=== PATIENT | female | born 1965 | race Caucasian/White ===

== ENCOUNTER 2017-09-06 10:16 | Observation (INO) | payer BC ==
[2017-09-06 11:46] LABS: ABS Basophils 0.1 10^3/ul (0-0.2); ABS Eosinophils 0.1 10^3/ul (0-0.6); ABS Lymphocytes 1.3 10^3/ul (1.0-4.8); ABS Monocytes 0.8 10^3/ul (0-0.8); ABS Neutrophils 4.9 10^3/ul (1.5-7.7); ABS Nucleated RBC 0 10^3/ul; Eosinophil % 0.9 % (0-6); Hematocrit 44 % (35-47); Hemoglobin 14.5 g/dl (12.0-16.0); Lymphocyte % 17.8 % (25-47); Mean Corpuscular HGB Conc 33 g/dl (31-36); Mean Corpuscular Hemoglobin 31 pg (27-31); Mean Corpuscular Volume 92 fL (80-97); Mean Platelet Volume 8 um3 (7.4-10.4); Nucleated Red Blood Cells % 0; Platelet Count 224 10^3/ul (150-450); Red Blood Count 4.72 10^6/ul (4.0-5.4); Red Cell Distribution Width 14 % (10.5-15)
[2017-09-06 12:00] LABS: EGFR Non-African American 70.9 (>60)
--- NOTE | 2017-09-06 13:49 | ADMNOTE ---
Subjective Date of Service: 09/06/17 Interval History: ADMISSION HISTORY AND PHYSICAL EXAM: Allergies Allergy/AdvReac Type Severity Reaction Status Date / Time Meperidine [From Demerol HCl] Allergy Vomiting Verified 05/12/16 16:54 Home Medications Medication Instructions Recorded Confirmed Type Aspirin EC Low Dose* [Ecotrin EC 81 mg PO QPM 09/06/17 09/06/17 History Low Dose 81 MG*] Folic Acid TAB* [Folvite TAB*] 1 mg PO DAILY 09/06/17 09/06/17 History Levothyroxine TAB* [Synthroid TAB*] 50 mcg PO DAILY 09/06/17 09/06/17 History Methotrexate TAB* 10 mg PO .SAT 09/06/17 09/06/17 History celeCOXIB CAP* [CeleBREX CAP*] 200 mg PO DAILY PRN 09/06/17 09/06/17 History HPI: The patient was in her usual stat of health until the PM 09/05/17 when she noted Her left ear was red and swollen. She had shaking chills. There was no hx of trauma, although her cat sleeps with her next to her head. She saw DINING SERVICE WORKER Kel Hi who gave her 2 injections of ceftriaxone. She had a temp over 101 before the injections, none since. No more chills either. Some increase in noted area erythema L ear. Family History: Findings - unremarkable Social History: Findings - Works time clock repairer as expert medical writer. Lives with her who is her SDM. No alochol or tobacco use. Past Medical History: Findings - 2 children, tubal ligation. Psoriatic arthritis Review of Systems - Measurements Intake and Output: Intake and Output Last 24 Hours 09/04/17 09/05/17 09/06/17 09/07/17 06:59 06:59 06:59 06:59 Weight 250 lb - Review of Systems Constitutional Symptoms: Negative: Weight Gain, Weight Loss, Weakness, Fatigue, Fever, Night Sweats, Unexplained Falls, Other Dermatology: Positive: Rash HEENT: Positive: Other - L ear cellulitis Eyes: Positive: Normal Thyroid: Positive: Normal Pulmonary: Positive: Normal Cardiology: Positive: Normal Gastroenterology: Positive: Normal Genital - Urinary: Positive: Normal Musculoskeletal: Positive: Joint Pain Endocrinology: Positive: Normal Hematologic/Lymphatic: Negative: Anemia, Easy Brusing, Hx Leukemia, Hx Lymphoma, Use of Anticoagulant, Use of Antiplatelet Drugs, Other Neurology: Positive: Normal Psychiatry: Positive: Normal Allergic/Immunologic: Negative: Hx Anaphylaxis, Hx Angioedema, Hx Environmental, Hx Seasonal, Athsma, Hx HIV, Immunocompromise, Swollen Glands LymphNodes, Other Objective Vital Signs - 8 hr 09/06/17 10:17 Temperature 99.4 F Pulse Rate 104 Respiratory 18 Rate Blood Pressure 138/92 (mmHg) O2 Sat by Pulse 99 Oximetry Appearance: Alert, sitting up on ED stretcher. In good spirits. Looks comfortable. Eyes: No Scleral Icterus Neck: NL Appearance and Movements; NL JVP, No Thyroid Enlargement, Masses Respiratory: Symmetrical Chest Expansion and Respiratory Effort, Clear to Auscultation, Clear to Percussion Cardiovascular: NL Sounds; No Murmurs; No JVD, RRR, No Edema Extremities: No Edema, No Clubbing, Cyanosis Skin: No Nodules or Sclerosis, - - L ear swollen, uniformly red. Erythema extends short distance into canal but dital canal and TM look nl. Erythema extends 1/2 cm behind ear on lower half of ear, 4 cm anterior to ear Neurological: Alert and Oriented x 3, NL Sensation Result Diagrams: 09/06/17 11:32 09/06/17 11:32 Assess/Plan/Problems-Billing Assessment: - Patient Problems (1) Cellulitis of left ear Current Visit: Yes Status: Acute Code(s): H60.12 - CELLULITIS OF LEFT EXTERNAL EAR SNOMED Code(s): 12799107 Comment: She responded to initial dose of ceftriaxone, will continue the same. (2) Psoriatic arthritis Current Visit: Yes Status: Acute Code(s): L40.50 - ARTHROPATHIC PSORIASIS, UNSPECIFIED SNOMED Code(s): 060961008 Comment: Patient told to omit her MTX dose 09/07/17. Celebrex PRN. (3) Morbid obesity Current Visit: Yes Status: Acute Code(s): E66.01 - MORBID (SEVERE) OBESITY DUE TO EXCESS CALORIES SNOMED Code(s): 413970072 Comment: BMI 44.3. (4) Hypothyroid Current Visit: Yes Status: Acute Code(s): E03.9 - HYPOTHYROIDISM, UNSPECIFIED SNOMED Code(s): 50937900 Comment: TSH wnl 05/13/17, continue home dose levothryoxine.
[2017-09-06] MEDS ORDERED: celeCOXIB CAP* 200 MG PO PRN (14:05)
[2017-09-06] MEDS ORDERED: Enoxaparin(*) 40 MG/0.4 ML SYR SUBCUT SCH (15:00)
[2017-09-06] MEDS ORDERED: cefTRIAXone(*) 1 GM in D5W 50 ML BAG* 50 ML IVPB SCH (16:00)
[2017-09-06] MEDS ORDERED: Aspirin EC Low Dose* 81 MG TAB.EC PO SCH (18:00)
[2017-09-07] MEDS ORDERED: Levothyroxine TAB* 50 MCG TAB PO SCH (06:00)
[2017-09-07 07:31] VITALS: BP 129/82
[2017-09-07] MEDS ORDERED: Folic Acid TAB* 1 MG PO SCH (09:00)
--- NOTE | 2017-09-07 11:12 | DS ---
CC: Maliha Schulz NP * DISCHARGE SUMMARY: DATE OF ADMISSION: 09/06/17 DATE OF DISCHARGE: 09/07/17 PRIMARY CARE PROVIDER: Maliha Schulz NP PRINCIPAL DIAGNOSIS: Left ear cellulitis. SECONDARY DIAGNOSIS: Psoriatic arthritis. MEDICATIONS AT DISCHARGE: 1. Keflex 500 mg 3 times a day for 10 additional days. 2. Methotrexate 10 mg on Saturdays. 3. Synthroid 50 mcg daily. 4. Celebrex 200 mg daily as needed. 5. Folic acid 1 tab daily. PERTINENT LABORATORY DATA: White blood cell count 7.0, 69% neutrophils. No other abnormalities except for mildly elevated glucose of 128 on presentation, nonfasting. HISTORY OF PRESENT ILLNESS AND HOSPITAL COURSE: This is a 52-year-old female with past medical history of psoriatic arthritis on methotrexate had sudden onset erythema and swelling over the left ear while at work associated with fevers. She received ceftriaxone prior to presentation, resolution of fevers and improvement in her erythema. Ceftriaxone was continued on admission with further improvement of erythema. On the day of discharge, erythema remained outside of her ear and auricle, not involving auditory canal. Tympanic membrane is unable to be visualized secondary to copious cerumen. There is mild preauricular erythema, also improved since admission. She has no pain on exam, no discharge. Overall feels much better and has remained afebrile since admission. Of note, the patient did have small area of psoriasis in superior part of her ear, which she notes she had been scratching out prior to development of erythema and swelling, which is still noticeable with a small laceration present in the most superior aspect of her ear. Due to the rapid development and evolution of her erythema, I would be concerned for staph as a causative organism; however, her rapid improvement with ceftriaxone argues against this. For this reason, I am going to start her on Keflex for 10 additional days, finish 12 days of antibiotics. She has been encouraged to follow up with the primary care provider prior to her completion of antibiotics to extend if necessary. I spent a significant amount of time detailing. Reasons to return to the hospital including but not limited to recurrent or worsening symptoms, worsening erythema, fevers, chills, night sweats, nausea, vomiting, diarrhea, or generally feeling worse or malaise. She acknowledged understanding. At followup, please; 1. Please monitor left ear for continued resolution of erythema. 2. No other specific labs or vitals that need followup. TIME SPENT: Greater than 60 minutes was spent on discharging the patient; greater than half was spent [id number] with the patient. [id number]/[facility] #: [id number] PERICO
== END 2017-09-07 08:50 | disposition home or self-care (01) ==
LOC: ED 10:16 → MED 13:49
PROVIDERS: ADMIT Internal Medicine; ATTEND Internal Medicine
DX: H60.12 Cellulitis of left external ear (principal); L40.50 Arthropathic psoriasis, unspecified; Z79.82 Long term (current) use of aspirin; Z79.899 Other long term (current) drug therapy
CPT/HCPCS: 36415; 80053; 85025; 87040; 99282; A9270-GY; G0378; J0696; J1650

== ENCOUNTER 2019-10-06 09:02 | Emergency (ER) | payer BC ==
--- OUTSIDE RECORDS SUMMARY | 2019-10-06 09:14 | XMS REPORT | Continuity of Care Document ---
:1965 External Reference #:[id number] Author Name NICOLAS Lunsford (transmitted by agent of provider Jane Pedersen) Address [facility] [place] [address] Care Team Providers Name Role Phone Maliha Schulz NP - Women's [facility] Care Team Information Prop And Effects Designer Problems Active Problems Provider Date Cervical spondylosis without myelopathy Federico Moore M.D. Onset: 01/21/2017 Shoulder joint pain Federico Moore M.D. Onset: 01/21/2017 Taking medication Reji Ferguson M.D. Onset: 11/05/2014 Lumbosacral spondylosis without myelopathy Reji Ferguson M.D. Onset: 2012 Psoriasis with arthropathy Reji Ferguson M.D. Onset: 09/21/2013 Medications Lock Stitch Channeler (Current) Use Encounter Reji Ferguson M.D. Onset: Carpal tunnel syndrome Reji Ferguson M.D. Onset: 11/10/2012 Immunological Findings Nonspecified Other & Reji Ferguson M.D. Onset: 2012 Unspecified Psoriasis Reji Ferguson M.D. Onset: 11/10/2012 Multiple joint pain Reji Ferguson M.D. Onset: 11/10/2012 Social History Type Date Description Comments Sex Unknown ETOH Use Denies alcohol use Tobacco Use Start: Unknown Patient has never smoked Recreational Drug Use Denies Drug Use Smoking Status Reviewed: 02/17/19 Patient has never smoked Allergies, Adverse Reactions, Alerts Active Allergies Reaction Severity Comments Date Demerol 11/10/2012 Medications Active Medications SIG Qnty Indications Ordering Provider Date Celebrex 3x po Q week 30caps Reji Ferguson 09/21/2013 200mg Capsules M.D. Aspir-81 1 po qd Other Ordering 03/20/2013 81mg Tablets Provider Folic Acid Take One Tablet 30tabs Z79.899 Estella Lezamak, 03/20/2013 1mg Tablets By Mouth Every ROLL SCALE MAN Day Methotrexate Sodium take four tablet 16tabs L40.59 Genooficarlos Saha, 2012 by mouth every ROLL SCALE MAN 2.5mg Tablets saturday as directed L40.9 Z79.899 Levothyroxine Sodium 1 by mouth every day Unknown 50mcg Tablets Clobetasol Propionate Unknown 0.05% Solution Immunizations Description No Information Available Vital Signs Date Vital Result Comment 08/25/2019 9:03am Heart Rate 84 /min BP Systolic Sitting 150 mmHg BP Diastolic Sitting 100 mmHg 02/17/2019 8:22am Height 63 inches 5'3" Weight 257.50 lb Heart Rate 83 /min BP Systolic Sitting 122 mmHg BP Diastolic Sitting 84 mmHg O2 % BldC Oximetry 98 % BMI (Body Mass Index) 45.6 kg/m2 Results Test Acquired Date Facility Test Result H/L Range Note Comp Metabolic 07/27/2019 [facility] Sodium 140 mmol/L Normal 135-145 Panel [address] [place] [address] [phone] Potassium 3.9 mmol/L Normal 3.5-5.0 Chloride 104 mmol/L Normal 101-111 Co2 Carbon Dioxide 31 mmol/L Normal 22-32 Anion Gap 5 mmol/L Normal 2-11 Glucose 97 mg/dL Normal 70-100 Blood Urea Nitrogen 20 mg/dL Normal 6-24 Creatinine 0.76 mg/dL Normal 0.51-0.95 BUN/Creatinine Ratio 26.3 High 8-20 Calcium 9.8 mg/dL Normal 8.6-10.3 Total Protein 7.2 g/dL Normal 6.4-8.9 Albumin 4.2 g/dL Normal 3.2-5.2 Globulin 3.0 g/dL Normal 2-4 Albumin/Globulin Ratio 1.4 Normal 1-3 Total Bilirubin 0.40 mg/dL Normal 0.2-1.0 Alkaline Phosphatase 68 U/L Normal 34-104 Alt 23 U/L Normal 7-52 Ast 26 U/L Normal 13-39 Egfr Non- 79.0 >60 Egfr 95.6 >60 1 Laboratory test 07/27/2019 [facility] C Reactive 11.80 High < 8.01 [address] Protein mg/[place] [address] [phone] CBC Auto Diff 07/27/2019 [facility] White Blood 5.7 Normal 3.5 -10.[address] Count 10^3/[place] [address] [phone] Red Blood Count 4.38 10^6/uL Normal 3.70-4.87 Hemoglobin 13.7 g/dL Normal 12.0-16.0 Hematocrit 40 % Normal 35-47 Mean Corpuscular Volume 90 fL Normal 80-97 Mean Corpuscular Hemoglobin 31 pg Normal 27-31 Mean Corpuscular HGB Conc 35 g/dL Normal 31-36 Red Cell Distribution Width 14 % Normal 10-15 Platelet Count 316 10^3/uL Normal 150-450 Mean Platelet Volume 8.2 fL Normal 7.4-10.4 Abs Neutrophils 3.0 10^3/uL Normal 1.5-7.7 Abs Lymphocytes 2.1 10^3/uL Normal 1.0-4.8 Abs Monocytes 0.4 10^3/uL Normal 0-0.8 Abs Eosinophils 0.1 10^3/uL Normal 0-0.6 Abs Basophils 0.1 10^3/uL Normal 0-0.2 Abs Nucleated RBC 0.0 10^3/uL Granulocyte % 53.0 % Lymphocyte % 36.7 % Monocyte % 7.3 % Eosinophil % 2.1 % Basophil % 0.9 % Nucleated Red Blood Cells % 0.1 Laboratory test 07/27/2019 [facility] Erythrocyte Sed 27 mm/Hr Normal 0-29 [address] [place] [address] [phone] 1 Because ethnic data is not always readily available, this report includes an eGFR for both -Americans and non- Americans. The National Kidney Disease Education Program (NKDEP) does not endorse the use of the MDRD equation for patients that are not between the ages of 18 and 70, are , have extremes of body size, muscle mass, or nutritional status, or are non- or non-. According to the National Kidney Foundation, irrespective of diagnosis, the stage of the disease is based on the level of kidney function: Stage Description GFR(mL/min/1.73 m(2)) 1 Kidney damage with normal or decreased GFR 90 2 Kidney damage with mild decrease in GFR 60-89 3 Moderate decrease in GFR 30-59 4 Severe decrease in GFR 15-29 5 Kidney failure <15 (or dialysis) 2 COPY TO MALIHA SCHULZ NP AND ESTELLA SAHA NP [id number] COPY TO MALIHA SCHULZ NP AND ESTELLA SAHA NP Procedures Date Code Description Status 03/31/2014 51799243 Mammogram Completed Medical Devices Description No Information Available Encounters Description No Information Available Assessments Date Code Description Provider 08/25/2019 L40.59 Other psoriatic arthropathy NICOLAS Lunsford 08/25/2019 L40.9 Psoriasis, unspecified NICOLAS Lunsford 08/25/2019 Z79.899 Other custodial (current) drug therapy NICOLAS Lunsford 08/25/2019 M85.9 Disorder of bone density and structure, NICOLAS Lunsford unspecified 08/25/2019 R03.0 Elevated blood-pressure reading, without NICOLAS Lunsford diagnosis of hypertension Plan of Treatment 08/25/2019 - JESSCIA LunsfordPL40.59 Other psoriatic arthropathyComments:Your arthritis seems to be clinically and symptomatically well controlled at this time.Your inflammatory markers are within normal range.Your latest laboratory tests indicate no detectable impairment of kidney and liver functions.Please, continue with the present dose of methotrexate but call me if you decide to increase the dose to 6 tab/weekContinue with folic acid.Continue with regular blood testsevery 3 month Please call the office if you develop any sign or symptoms of infection, increased skin or articular involvement or acute change in your health.Follow up:6 month labs every 3 month Needs info in the utjavlL83.9 Psoriasis, unspecifiedComments:Please call if you decried to increase the MTX to 6 tabs/week.Z79.899 Other custodial (current) drug [id number] Disorder of bone density and structure, unspecifiedComments:You should be getting at least 1000 mg -1200 mg of calcium and 1000 IU of Vitamin D on a daily basisin your diet and/or with supplementation. Calcium citrate is the most bioavailable preparation; dairy and greens leaf vegetables are an excellent source. It is also very important to be doing weight bearing exercises regularly.R03.0 Elevated blood-pressure reading, without diagnosis of hypertensionComments:Please check your BP and heart rate daily and keep a log of measurement. Please follow up with Edith Paris if BP runs consistently higher than 140/90. Functional Status Description No Information Available Mental Status Description No Information Available Referrals Description No Information Available
[2019-10-06 09:32] LABS: ABS Basophils 0.1 10^3/ul (0-0.2); ABS Eosinophils 0.1 10^3/ul (0-0.6); ABS Lymphocytes 1.6 10^3/ul (1.0-4.8); ABS Monocytes 0.5 10^3/ul (0-0.8); ABS Neutrophils 6.8 10^3/ul (1.5-7.7); Eosinophil % 0.9 %; Hematocrit 42 % (35-47); Hemoglobin 14.6 g/dL (12.0-16.0); Lymphocyte % 18.1 %; Mean Corpuscular HGB Conc 35 g/dL (31-36); Mean Corpuscular Hemoglobin 31 pg (27-31); Mean Corpuscular Volume 90 fL (80-97); Mean Platelet Volume 7.9 fL (7.4-10.4); Platelet Count 306 10^3/uL (150-450); Red Blood Count 4.68 10^6 /uL (3.70-4.87); Red Cell Distribution Width 13 % (10-15); White Blood Count 9.1 10^3/uL (3.5-10.8)
[2019-10-06 09:45] LABS: Albumin 4.5 g/dL (3.2-5.2); Calcium 9.7 mg/dL (8.6-10.3); Potassium 4.3 mmol/L (3.5-5.0); Total Bilirubin 0.5 mg/dL (0.2-1.0)
[2019-10-06 09:51] LABS: Albumin/Globulin Ratio 1.4 (1-3); BUN/Creatinine Ratio 23.9 (8-20); EGFR African American 80.7 (>60); EGFR Non-African American 66.7 (>60); Globulin 3.3 g/dL (2-4); Total Protein 7.8 g/dL (6.4-8.9)
[2019-10-06] MEDS ORDERED: NS 0.9% 1000 ML** 1,000 ML IV ONE ×2 (10:12→12:24)
[2019-10-06] MEDS ORDERED: Ondansetron INJ* 2 MG/ML VIAL IV ONE (10:12)
[2019-10-06] MEDS ORDERED: Ketorolac INJ* 30 MG/ML 1 ML VIAL IV ONE (10:12)
--- NOTE | 2019-10-06 10:17 | ED ---
GI/ HPI - HPI Summary HPI Summary: This pt is a 4 Y/O F presenting to [facility] with a CC of R flank pain that has radiated to her genital region and is rated a 10/10 in severity and began 2019 at 0905. She states that she has been having dysuria and has had chills without a fever since the onset. She also states that she has been having hematuria since late last night. She denies any CP, vomiting, L sided flank pain , headaches, and sore throat. She states that she has no alleviating factors but urinating increases her pain. She has no pertinent PMHx and states that her mother has a HX of kidney stones. - History of Current Complaint Chief Complaint: EDFlankPain Time Seen by Provider: 10/06/19 09:11 Stated Complaint: SEVERE BACK AND ABDOMINAL PAIN PER PT Hx Obtained From: Patient Onset/Duration: Started Days Ago, Still Present Timing: Constant Severity: Severe Current Severity: Severe Pain Intensity: 10 Location of Pain: Flank - R Pain Radiates to: Inguinal Associated Signs and Symptoms: Positive: Negative - Sore throat, SOB, Nausea, Hematuria, Dysuria, Flank Pain - + R sided, - L sided, Chills, Abdominal Pain - inguinal. Negative: Vomiting, Fever Aggravating Factor(s): Urination Alleviating Factor(s): Nothing - Allergy/Home Medications Allergies/Adverse Reactions: Allergies Allergy/AdvReac Type Severity Reaction Status Date / Time meperidine [From Demerol] Allergy Vomiting Verified 11/13/18 14:05 PMH/Surg Hx/FS Hx/Imm Hx Previously Healthy: Yes Endocrine/Hematology History: Denies: Hx Diabetes Cardiovascular History: Denies: Hx Congestive Heart Failure, Hx Hypertension Musculoskeletal History: Reports: Hx Rheumatoid Arthritis - CHECKING, Other Musculoskeletal History - Hx psoriatic arthritis Sensory History: Denies: Hx Contacts or Glasses, Hx Legally Blind, Hx Hearing Aid Opthamlomology History: Denies: Hx Contacts or Glasses, Hx Legally Blind - Cancer History Hx Chemotherapy: No Hx Radiation Therapy: No - Surgical History Surgical History: Yes Surgery Procedure, Year, and Place: tubal ligation - Immunization History Immunizations Up to Date: Yes Infectious Disease History: No Infectious Disease History: Denies: Traveled Outside the [place] in Last 30 Days - Family History Known Family History: Positive: Other - Kidney stones: maternal - Social History Occupation: Employed Full-time Lives: With Family Alcohol Use: None Hx Substance Use: No Substance Use Type: Reports: None Hx Tobacco Use: No Smoking Status (MU): Never Smoked Tobacco Household Exposure: No Review of Systems Positive: Chills. Negative: Fever Negative: Sore Throat Negative: Chest Pain Positive: Abdominal Pain - inguinal , Nausea. Negative: Vomiting Positive: dysuria, flank pain - + R sided, - L sided, hematuria Negative: Headache All Other Systems Reviewed And Are Negative: Yes Physical Exam - Summary Physical Exam Summary: Constitutional: Well-developed, Well-nourished, Alert. Mildly uncomfortable Skin: Warm, Dry HENT: Normocephalic; Atraumatic Eyes: Conjunctiva normal Neck: Musculoskeletal ROM normal neck. (-) JVD, (-) Stridor, (-) Nuchal rigidity Cardio: Rhythm regular, rate normal, Heart sounds normal; Intact distal pulses; Radial pulses are 2+ and symmetric. (-) Murmur Pulmonary/Chest wall: Effort normal. (-) Respiratory distress, (-) Wheezes, (-) Rales Abd: Soft, R flank pain, epigastric tenderness (-) Distension, (-) Guarding, (- ) Rebound Musculoskeletal: (-) Edema Lymph: (-) Cervical adenopathy Neuro: Alert, Oriented x3 Psych: Mood and affect Normal Triage Information Reviewed: Yes Vital Signs On Initial Exam: Initial Vitals Temp Pulse Resp BP Pulse Ox 98.3 F 83 18 157/95 99 10/06/19 09:02 10/06/19 09:02 10/06/19 09:02 10/06/19 09:02 10/06/19 09:02 Vital Signs Reviewed: Yes Procedures - Sedation Patient Received Moderate/Deep Sedation with Procedure: No Diagnostics - Vital Signs Vital Signs Temp Pulse Resp BP Pulse Ox 10/06/19 09:02 98.3 F 83 18 157/95 99 - Laboratory Lab Results: Lab Results 10/06/19 10/06/19 Range/Units 09:23 09:23 WBC 9.1 (3.5-10.8) 10^3/uL RBC 4.68 (3.70-4.87) 10^6 /uL Hgb 14.6 (12.0-16.0) g/dL Hct 42 (35-47) % MCV 90 (80-97) fL MCH 31 (27-31) pg MCHC 35 (31-36) g/dL RDW 13 (10-15) % Plt Count 306 (150-450) 10^3/uL MPV 7.9 (7.4-10.4) fL Neut % (Auto) 75.1 % Lymph % (Auto) 18.1 % Bulloch % (Auto) 5.2 % Eos % (Auto) 0.9 % Baso % (Auto) 0.7 % Absolute Neuts (auto) 6.8 (1.5-7.7) 10^3/ul Absolute Lymphs (auto) 1.6 (1.0-4.8) 10^3/ul Absolute Monos (auto) 0.5 (0-0.8) 10^3/ul Absolute Eos (auto) 0.1 (0-0.6) 10^3/ul Absolute Basos (auto) 0.1 (0-0.2) 10^3/ul Absolute Nucleated RBC 0.0 10^3/ul Nucleated RBC % 0.0 Sodium 137 (135-145) mmol/L Potassium 4.3 (3.5-5.0) mmol/L Chloride 103 (101-111) mmol/L Carbon Dioxide 27 (22-32) mmol/L Anion Gap 7 (2-11) mmol/L BUN 21 (6-24) mg/dL Creatinine 0.88 (0.51-0.95) mg/dL Est GFR ( Amer) 80.7 (>60) Est GFR (Non-Af Amer) 66.7 (>60) BUN/Creatinine Ratio 23.9 H (8-20) Glucose 140 H (70-100) mg/dL Calcium 9.7 (8.6-10.3) mg/dL Total Bilirubin 0.50 (0.2-1.0) mg/dL AST 20 (13-39) U/L ALT 18 (7-52) U/L Alkaline Phosphatase 76 (34-104) U/L Total Protein 7.8 (6.4-8.9) g/dL Albumin 4.5 (3.2-5.2) g/dL Globulin 3.3 (2-4) g/dL Albumin/Globulin Ratio 1.4 (1-3) Result Diagrams: 10/06/19 09:23 10/06/19 09:23 Lab Statement: Any lab studies that have been ordered have been reviewed, and results considered in the medical decision making process. - CT CT A/P CT Interpretation Completed By: Radiologist Summary of CT Findings: Right hydronephrosis with calculi in the right ureter at the proximal ureter at the level of L3 level measuring 0.4 cm.. Additional calculi in the right ureterovesicular junction or in the bladder measuring 0.3 cm is noted with mild to moderate right hydroureter. ED physician has reviewed this report. Re-Evaluation - Re-Evaluation First Eval Re-Evaluation Time: 12:00 Change: Improved Comment: Pt states that she is feeling better and expressed a desire to be discharged home if she continues to improve and if she can sustain PO. Second Eval Re-Evaluation Time: 14:05 Change: Improved Comment: Pt passed her stone. Will be discharged home following Urology consult. GIGU Course/Dx - Course Course Of Treatment: 54 y/o F p/w R flank and RLQ pain. - VSS, mild distress 2/ 2 pain. Given toradol, IVF. Plan for CT a/p concern for renal stone. CT shows two R sided renal calculi. One 0.4 cm at the UPJ w hydronephrosis. Given 2g ceftriaxone for UA w 2+ WBC, d/w urology who states patients urine not infected so not given further abx. - Patient given IVF, pain control. Able to pass stone. Will go home w pain control and can follow up w urology. Stone analysis ordered - Diagnoses Provider Diagnoses: Kidney stone, Flank pain - Physician Notifications Discussed Care Of Patient With: Olman Nguyen Time Discussed With Above Provider: 12:25 Instructed by Provider To: Other - Dr. Nguyen, bonding equipment operator, recommends pain control and reassesment in a couple hours after the pt as received more fluids. The pt is scheduled for surgery at 1700 today if her pain increases and she continues to have intesnifying symptoms. at 14:00 he states patient can be discharged to home and follow up in office Discharge ED - Sign-Out/Discharge Documenting (check all that apply): Patient Departure - discharge - Discharge Plan Condition: Stable Disposition: HOME Prescriptions: oxyCODONE/Acetamin 5/325 MG* [Percocet 5/325 TAB*] 1 tab PO Q6H PRN 3 Days #12 tab MDD 4 PRN Reason: Pain Patient Education Materials: Kidney Stones (ED), Flank Pain (ED) Referrals: Maliha Schulz NP [Primary Care Provider] - 2 Days Additional Instructions: You were seen in the emergency department for flank pain. Your CT scan showed 2 stones in your kidney, you were able to pass one here. Please keep hydrated. Please use a strainer when using the restroom. Please follow up with urology. Please follow up with your primary care doctor in next 2-3 days and return to emergency department for worsening pain, fevers, or concerning symptoms. It was a pleasure taking care of you today. - Billing Disposition and Condition Condition: STABLE Disposition: Home - Attestation Statements Document Initiated by Makayla: Yes Documenting Scribe: Mahendra Brown Provider For Whom Makayla is Documenting (Include Credential): Kyia Hyatt MD Scribe Attestation: IMahendra, scribed for Kiya Hyatt MD on 10/06/19 at 1451. Scribe Documentation Reviewed: Yes Provider Attestation: The documentation as recorded by the Mahendra galarza accurately reflects the service I personally performed and the decisions made by Kiya funez MD Status of Scribe Document: Viewed
[2019-10-06] MEDS ORDERED: Iohexol 300* (CONTRAST) 10 ML SDV IV ONE (10:35)
[2019-10-06 11:12] LABS: Urine Appearance Turbid; Urine Bilirubin Negative (Negative); Urine Blood 3+ (Negative); Urine Color Amber; Urine Glucose Negative (Negative); Urine Ketones Negative (Negative); Urine Nitrite Negative (Negative); Urine Protein 1+(30 mg/dL) (Negative); Urine Specific Gravity 1.021 (1.010-1.030); Urine Urobilinogen Negative (Negative)
[2019-10-06 11:15] LABS: Urine Bacteria Absent (Absent); Urine Red Blood Cell 3+(>10/hpf) (Absent); Urine Squamous Epithelial Cell Present (Absent); Urine White Blood Cell 2+(11-20/hpf) (Absent)
[2019-10-06] MEDS ORDERED: cefTRIAXone(*) 2 GM in NS 0.9% 100 ML* 100 ML IVPB ONE (11:19)
[2019-10-06] MEDS ORDERED: Morphine 4 MG/ML VIAL (1 ml) 4 MG/ML VIAL IV ONE ×2 (11:28→11:38)
[2019-10-06] MEDS ORDERED: oxyCODONE/Acetamin 5/325 MG* TAB PO ONE (12:33)
[2019-10-06 13:54] VITALS: BP 127/68
[2019-10-06] MEDS ORDERED: Buffered Lidocaine 1% SYRIN* 1 ML/SYRINGE INTRADERM ONE (13:55)
[2019-10-06] MEDS ORDERED: Famotidine IV* 10 MG/ML 2 ML (20 mg) IV ONE (13:55)
[2019-10-06] MEDS ORDERED: Lactated Ringers 1000 ML Bag* 1,000 ML IV SCH (14:00)
--- NOTE | 2019-10-06 16:30 | CONS ---
CONSULTATION REPORT: DATE OF CONSULT: 10/06/19 REQUESTING PHYSICIAN: Dr. Kiya Hyatt in the emergency department. DIAGNOSES: 1. Right hydronephrosis. 2. Calculi, right proximal and distal ureter. HISTORY OF PRESENT ILLNESS: Suri Crowell is a 54-year-old lady who presented to the [facility] with right flank pain and nausea that started yesterday. She also had gross hematuria. She den ies any fever or chills and she does not have any prior history of stones. CT scan was obtained in [facility] emergency department, which revealed a 4-mm calculus in the right proximal ureter and approximatel y 3-mm calculus in the right distal ureter with moderate right hydronephrosis. PAST MEDICAL HISTORY: Significant for rheumatoid arthritis and psoriatic arthritis. ALLERGIES: DEMEROL. FAMILY HISTORY: Her mother had kidney stones. REVIEW OF SYSTEMS: She is otherwise in excellent health. There is no history of diabetes mellitus o r any other major systemic illness or any cardiac issues. She denies any chest pain or shortness of breath. PHYSICAL EXAM: Reveals a pleasant, mildly uncomfortable appearing middle-aged lady. Blood pressure is 157/95, pulse 83 per minute, respirations 18 per minute, oxygen saturation 99%, temperature 98.3. Cardiovascular Exam: Regular rate and rhythm. S1, S2. Lungs are clear bilaterally. Abdomen is so ft with mild right flank tenderness. LABORATORY DATA: Review of labs reveals a white count of 9.1, hemoglobin and hematocrit are 14.6 and 42. Sodium is 137, potassium is 4.3, BUN and creatinine are 21 and 0.88. Urinalysis shows leukocyt es and red blood cells with no evidence of bacteria. IMPRESSION AND PLAN: I had a detailed discussion with the patient and with Dr. Hyatt, and I thin k this can be managed conservatively. I think if she is able to pass the distal calculus, which is f airly small, that would greatly increase her chances of passing the other calculus also, and I have i nstructed her to call me if she develops a fever over 101, uncontrollable pain, or vomiting. She has also been instructed to return to the emergency room if either of those things happen and at the pre sent time the plan is for her to be discharged with outpatient oral medications and to strain her uri ne and hopefully she will pass the distal calculus within the next day or so. All of her questions were answered. [id number]/[facility] #: [id number]
== END 2019-10-06 14:30 | disposition home or self-care (01) ==
LOC: ED 09:02
DX: N13.2 Hydronephrosis with renal and ureteral calculous obstruction (principal); R31.0 Gross hematuria; M06.9 Rheumatoid arthritis, unspecified; L40.50 Arthropathic psoriasis, unspecified; Z88.5 Allergy status to narcotic agent
CPT/HCPCS: 36415; 74177; 80053; 81003; 81015; 85025; 87086; 96361; 96365; 96366; 96375; 99282; A9270-GY; J0696; J1885; J2270; J2405; Q9967

== ENCOUNTER 2019-12-09 07:33 | Day surgery (SDC) | payer BC ==
--- NOTE | 2019-12-08 10:47 | HP ---
CC: Maliha Schulz NP; Dr. Nguyen* ADMITTING HISTORY AND PHYSICAL: DATE OF ADMISSION: 12/09/19 ADMITTING DIAGNOSES: 1. Obstructing calculi, right distal ureter 2. Right hydronephrosis. PLANNED PROCEDURE: Right uteroscopy, possible laser and stent insertion. SURGEON: Dr. Nguyen. HISTORY OF PRESENT ILLNESS: Suri Crowell is a 54-year-old lady who I had originally evaluated in the emergency department almost 2 months ago for right flank pain and right hydronephrosis. Since then she has had several imaging studies and has continued to show persistent right hydronephrosis with now what appears to be multiple calculi in the distal right ureter. She is now being brought in for right ureteroscopy, possible laser and stent insertion. Because this has been going on for a while, I explained to her that she may turn out worker to have a moderate amount of edema secondary to the calculi and may require a 2- stage procedure depending on the operative finding. PAST MEDICAL HISTORY: Significant for: 1. Psoriatic arthritis. 2. Hypothyroidism. PAST SURGICAL HISTORY: Significant for tubal ligation. MEDICATIONS ON ADMISSION: 1. Folic acid 1 mg daily. 2. Methotrexate 2.5 mg 4 tablets once a week. 3. Celebrex 200 mg Saturday, Saturday, Saturday. 4. Levothyroxine 100 mcg half tablet daily. ALLERGIES AND INTOLERANCES: DEMEROL. FAMILY HISTORY: Negative for stones. SOCIAL HISTORY: Smoking history: Nonsmoker. REVIEW OF SYSTEMS: She denies any chest pain or shortness of breath. There is no history of diabetes mellitus or any other major systemic illness. PHYSICAL EXAMINATION GENERAL: This is a pleasant middle aged lady. VITAL SIGNS: Blood pressure is 126/80, pulse 98 per minute and regular, temperature 96.1, oxygen saturation 99% on room air. LUNGS: Clear bilaterally. CARDIOVASCULAR: Regular rate and rhythm. S1, S2. ABDOMEN: Soft with mild right flank tenderness. IMPRESSION: A 54-year-old lady with persistent right hydronephrosis and what appears to be multiple calculi in the right ureter. I have discussed the procedure of right ureteroscopy and possible laser lithotripsy in detail and also as mentioned above, I have discussed the possibility of requiring a 2- stage procedure depending on the intraoperative finding. PLAN: Right ureteroscopy, possible laser and stent insertion. [id number]/[facility] #: [id number] MTDD
[~2019-12-09 07:33] MED LIST: Buffered Lidocaine 1% SYRIN* 1 ML/SYRINGE INTRADERM ONE; Dexamethasone IV* 4 MG/ML 1 ML (4 MG) IV SLOW PU ONE; Famotidine TAB* 20 MG PO ONE; Lactated Ringers 1000 ML Bag* 1,000 ML IV SCH
[2019-12-09] MEDS ORDERED: Dexamethasone IV* 4 MG/ML 1 ML (4 MG) ONE (07:49)
[2019-12-09] MEDS ORDERED: Famotidine IV* 10 MG/ML 2 ML (20 mg) ONE (07:49)
[2019-12-09] MEDS ORDERED: cefTRIAXone(*) 2 GM ADDV.VIAL IVPB ONE (07:49)
[2019-12-09] MEDS ORDERED: Famotidine TAB* 20 MG ONE (08:38)
[2019-12-09] MEDS ORDERED: fentaNYL* 50 MCG/ML 2 ML VIAL (100 MCG VIAL) ONE (09:09)
[2019-12-09] MEDS ORDERED: Midazolam* 1 MG/ML 2 ML VIAL (2 MG) ONE (09:09)
[2019-12-09] MEDS ORDERED: Ondansetron INJ* 2 MG/ML VIAL ONE (09:10)
[2019-12-09] MEDS ORDERED: Propofol* 10 MG/ML 20 ML BTL ONE (09:10)
[2019-12-09] MEDS ORDERED: Glycopyrrolate IV* 0.2 MG/ML 1 ML VIAL ONE (09:10)
[2019-12-09] MEDS ORDERED: Iohexol 180 (CONTRAST) 10 ML SDV IV ONE (09:27)
[2019-12-09] MEDS ORDERED: DiMENhydriNATE IV* 50 MG/ML VIAL IV PUSH PRN (10:57)
[2019-12-09] MEDS ORDERED: Naloxone* 0.4 MG/ML 1 ML VIAL IV PRN (10:57)
[2019-12-09] MEDS ORDERED: fentaNYL* 50 MCG/ML 2 ML VIAL (100 MCG VIAL) IV PRN (10:57)
[2019-12-09 11:21] VITALS: BP 144/87
--- NOTE | 2019-12-09 11:36 | OP ---
CC: Maliha Schulz NP * DATE OF OPERATION: 12/09/19 - [facility] DATE OF : 63 SURGEON: Olman Nguyen MD. ANESTHESIOLOGIST: Dr. Melgoza. ANESTHESIA: General. PRE-OP DIAGNOSES: 1. Right hydronephrosis. 2. Multiple calculi, right distal ureter. POST-OP DIAGNOSES: 1. Right hydronephrosis. 2. Multiple calculi, right distal ureter. OPERATIVE PROCEDURE: Cystoscopy, right retrograde pyelogram, right ureteroscopy , laser lithotripsy of right ureteral calculi and removal of calculi fragments, right pyeloscopy and right stent insertion. COMPLICATIONS: None. STENTS USED: 7-Estonian stent, right ureter. POSTOPERATIVE CONDITION: Stable. OPERATIVE FINDINGS: 1. Multiple calculi, right distal ureter. 2. Moderate to severe right hydronephrosis and hydroureter. INDICATIONS: Suri Crowell is a 54-year-old lady who has had persistent right hydronephrosis and calculi in the right ureter for several weeks and is now being brought in for management of the same. DESCRIPTION OF PROCEDURE: After induction of general anesthesia, the patient was placed in dorsal lithotomy position. Sequential compression devices were in place and functioning. Initial evaluation revealed a normal appearing bladder. A guidewire was introduced into the right ureter. Retrograde pyelogram revealed significant right hydronephrosis and hydroureter with a significantly dilated proximal and mid right ureter. A 6-Estonian semi-rigid ureteroscope was introduced and advanced under direct vision. A few cm (3 to 4) above the ureterovesical junction, there was a cluster of calculi noted with significant surrounding edema. Using a 550 micron Holmium laser, these were carefully fragmented into multiple smaller pieces which were then removed using a 3-pronged grasper. The ureteroscope was carefully advanced proximally and the mid and proximal ureter were examined and there were no additional calculi noted. The ureteroscope was then advanced carefully into the renal pelvis which was significantly dilated and pyeloscopy was performed. No additional calculi were seen. The ureteroscope was then carefully withdrawn under direct vision and once again to make sure that there were no sizeable calculi remaining in the ureter and none were noted. Because the patient has had these calculi for several weeks and there was significant edema that would set at higher risk for a stricture, my plan is to leave a stent in for at least 2 to 3 weeks to minimize that risk. A 7-Estonian stent was introduced and positioned under fluoroscopic monitoring with good proximal and distal positioning obtained. The bladder was emptied. The patient tolerated the procedure satisfactorily and was transferred back to the recovery area in stable condition. [id number]/[facility] #: [id number] MTDD
== END 2019-12-09 11:54 | disposition home or self-care (01) ==
LOC: OR 07:33
PROVIDERS: ATTEND Urology
DX: N13.2 Hydronephrosis with renal and ureteral calculous obstruction (principal); L40.50 Arthropathic psoriasis, unspecified; E03.9 Hypothyroidism, unspecified; Z68.41 Body mass index [BMI] 40.0-44.9, adult
CPT/HCPCS: 74420; 82365; 88300; A9270-GY; C1876; J0696; J1100; J2250; J2405; J2704; J3010